=== PATIENT | female | born 1995 | race Two or more races ===

== ENCOUNTER 2024-10-26 17:49 | Emergency (ER) | payer MEDICAID, SELFPAY ==
[2024-10-26 18:12] VITALS: BP 106/70; PULSE 63; RESP 16; TEMP 37.1; O2SAT 99; BMI 26.4
--- NOTE | 2024-10-26 18:38 | XR_ITS ---
Examination: CT cervical spine without contrast 2-D sagittal reconstructions 2-D coronal reconstructions 3-D reconstructions. Exam date and time:October 26, 2024 1910 hours INDICATIONS: Patient fell today with image of the neck, neck pain CTDI:vol (mGy) 14.6 DLP: (mGycm) 345 Technique: Multiple 2 mm axial sections of the cervical spine have been obtained. The coronal and sagittal reconstructions have been obtained. 3-D reconstructions have been obtained. Low dose protocols were performed. One or more of the following dose reduction techniques were used; automated exposure control, adjustment of the mA and/or KV according to patient size, use of iterative reconstruction technique. Findings: Axial sections demonstrate intact base of the skull. C1 exhibit satisfactory relationship to the odontoid. No acute cervical vertebral body fracture seen. Alignment posterior spinous processes satisfactory. Impression: No acute cervical fracture.
--- NOTE | 2024-10-26 18:40 | EDNOTE_ITS ---
<Statement entered by Clair Canales MD - 10/27/24 04:49> As co-signing physician, I was present and available for consult prn. I concur with the plan and care as documented by the midlevel provider. ED Neck Injury Pain RME/HPI General Chief Complaint: Neck Pain/Injury Stated Complaint: Neck pain X 11 days Time Seen by Provider: 10/26/24 18:38 Arrival date/time: 10/26/24 17:49 29F with no significant PMH presents to ED with 2 days of R-sided neck pain. Patient denies fall/trauma, URI symptoms, fevers/chills, COSTA, dizziness, vision changes, and chiropractic manipulation. Limitations: no limitations Related Data Allergies Allergy/AdvReac Type Severity Reaction Status Date / Time No Known Drug Allergies Allergy Verified 10/26/24 17:55 Review of Systems Review of Systems Systems Reviewed: All systems reviewed, normal except as documented Constitutional Constitutional: Reports system reviewed and no additional complaints, except as documented, Denies fever(s) and Denies headache(s) ENT Ears, Nose, Mouth, and Throat: Denies disequilibrium, Denies headache(s) and Reports neck pain Cardiovascular Cardiovascular: Reports system reviewed and no additional complaints, except as documented, Denies chest pain and Denies dyspnea Respiratory Respiratory: Reports system reviewed and no additional complaints, except as documented, Denies cough and Denies dyspnea Gastrointestinal Gastrointestinal: Reports system reviewed and no additional complaints, except as documented, Denies abdominal pain, Denies nausea and Denies vomiting Musculoskeletal Musculoskeletal: Reports as per HPI and Reports neck pain Neurologic Neurologic: Reports system reviewed and no additional complaints, except as documented, Denies confusion, Denies disequilibrium and Denies headache(s) Psychiatric Psychiatric: Denies confusion Past Medical History Social History SMOKING STATUS: Never smoker ED Exam General Limitations: Present no limitations General appearance: Present alert and in no apparent distress Head Head exam: Present atraumatic Eye Eye exam: Present normal appearance, PERRL and EOMI ENT ENT exam: Present normal exam, normal oropharynx and mucous membranes moist Neck Neck exam: Present trachea midline Chest Chest inspection: Present normal inspection and symmetric chest wall rise Respiratory Respiratory exam: Present normal lung sounds bilaterally Cardiovascular Cardiovascular exam: Present regular rate, normal rhythm and normal heart sounds Abdominal Exam Abdominal exam: Present soft and normal bowel sounds Extremities Exam Extremities exam: Present normal inspection and full ROM Back Exam Back exam: Present normal inspection and full ROM Neurological Exam Neurological exam: Present alert, oriented X3 and CN II-XII intact Psychiatric Psychiatric exam: Present normal affect and normal mood Skin Skin exam: Present warm, dry, intact and normal color Course Quality Measures none Orders Category Date Time Status CT cervical spine wo con Stat Exams 10/26/24 18:38 Completed CYCLObenzaPRINE [Flexeril] Med 10/26/24 18:41 Discontinued 5 mg PO X1 ONE Naproxen [Naprosyn] Med 10/26/24 18:41 Discontinued 500 mg PO X1 ONE Vital Signs Vital signs: Vital Signs Temperature 98.8 F 10/26/24 18:12 Pulse Rate 63 10/26/24 18:12 Respiratory Rate 16 10/26/24 18:12 Blood Pressure 106/70 10/26/24 18:12 Pulse Oximetry (%) 99 10/26/24 18:12 Oxygen Delivery Method Room Air 10/26/24 18:12 O2 at 99% on RA and WNLs Neck Pain MDM Narrative MDM Narrative:: 29F with no significant PMH presents to ED with 2 days of R-sided neck pain. Patient denies fall/trauma, URI symptoms, fevers/chills, COSTA, dizziness, vision changes, and chiropractic manipulation. Physical exam reveals normal pupil response and EOM. Limited neck ROM, mostly to the R-side. Possible midline tenderness, but gait normal. Speech normal. WOB normal. Patient is afebrile, calm, and alert. CT unremarkable. Meds and genetic counselor given. Likely MSK in nature. Patient data External records reviewed:: [facility] previous records Clinical information provided by:: patient Social determinants that could affect healthcare access:: none Patient has the following chronic illnesses:: none How is presenting disease/condition affected by chronic disease/condition?: no chronic disease Evaluation data The following diagnostics were reviewed and interpreted by me:: radiology exam(s) Lab and/or radiology exams considered but not ordered:: ordered Interpretation Summary: above Medications / Prescriptions Medications or Prescriptions considered but not ordered:: ordered Medication administrations:: Medication Administration History Discontinued Medications Cyclobenzaprine HCl (Cyclobenzaprine 5 Mg Tablet) 5 mg PO X1 ONE Stop: 10/26/24 18:42 Last Admin: 10/26/24 18:55 Dose: 5 mg Documented By: Naproxen (Naproxen 250 Mg Tablet) 500 mg PO X1 ONE Stop: 10/26/24 18:42 Last Admin: 10/26/24 18:54 Dose: 500 mg Documented By: above Consultations Consultation(s) initiated? (list below): No Diagnosis Neck Differential Diagnosis: disc disorder of cervical region, whiplash injury to neck, closed subluxation of cervical spine, fracture of cervical spine without lesion of spinal cord, cervical radiculopathy, vertebral artery dissection, torticollis, cervical spondylosis, strain of neck muscle and other (neck pain) Most likely diagnosis given after review of the tests above:: neck pain Admission Indicated Admission indicated?: not indicated Admission Request Was there a request for admission?: No Disposition Plan Disposition Plan: Discharge Discharge Attestation Discharge Attestation: The patient and all family members were given an opportunity to ask questions and understood the discharge instructions. Discharge instructions specifically effects, indications for sooner follow up or return to the emergency department, and the expected course of current diagnosis. Patient condition: Stable Discharge Plan Plan Patient Disposition: HOME (Self Care) Discharge Disposition comment: Stable Prescriptions/Referrals Referrals: No Primary/Family,Physician [Primary Care Provider] - In 1 week Problem List Clinical Impression: Neck pain Patient/Caregiver Discharge Instructions Education Materials: ED Neck Pain No Trauma Additional Instructions: Please follow-up with PCP within 24-48 hours and return immediately if symptoms worsen. If problem persists, recommend outpatient PT and/or MRI follow-up. In the meantime, rest, use ice/heat, and/or compression. Print Language: Swedish Stand Alone Forms: Patient Portal Info Letter ARIANNE/WILL Supervising Physician ARIANNE/WILL Supervising Physician: Dr. Malik
[2024-10-26] MEDS: NAPROXEN 250 MG TABLET 500 MG PO (18:54)
== END 2024-10-26 20:44 | disposition home or self-care (01) ==
PROVIDERS: Emergency Provider Emergency Medicine
DX: M54.2 Cervicalgia (principal)
CPT/HCPCS: 72125; 99283; A9270

== ENCOUNTER 2024-11-20 00:28 | Emergency (ER) | payer MEDICAID, SELFPAY ==
[2024-11-20 00:33] VITALS: BMI 26.6
[2024-11-20 00:41] VITALS: BP 110/71; PULSE 63; RESP 18; TEMP 36.6; O2SAT 99
--- NOTE | 2024-11-20 00:45 | EKG_ITS ---
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
[2024-11-20 00:49] VITALS: BP 104/64; BP 107/71; BP 112/74; PULSE 60; PULSE 61; PULSE 64
--- NOTE | 2024-11-20 01:12 | PD.EDSYNC ---
ED Syncope RME/HPI General Chief Complaint: Syncope / Near Syncope Stated Complaint: 3 TEETH PULLED YESTERDAY SYNCO[PE Time Seen by Provider: 11/20/24 00:59 Arrival date/time: 11/20/24 00:28 29F with no significant PMH presents to ED with syncope after she stood up to use the bathroom. Patient had 3 teeth pulled yesterday w/o general anesthesia. Patient only has dizziness now. Limitations: no limitations Related Data Allergies Allergy/AdvReac Type Severity Reaction Status Date / Time No Known Drug Allergies Allergy Verified 11/20/24 00:42 Review of Systems Review of Systems Systems Reviewed: All systems reviewed, normal except as documented Constitutional Constitutional: Reports system reviewed and no additional complaints, except as documented, Denies fever(s) and Denies headache(s) ENT Ears, Nose, Mouth, and Throat: Reports as per HPI, Denies disequilibrium, Denies headache(s) and Reports vertigo Cardiovascular Cardiovascular: Reports system reviewed and no additional complaints, except as documented, Denies chest pain, Denies dyspnea and Reports syncope Respiratory Respiratory: Reports system reviewed and no additional complaints, except as documented, Denies cough and Denies dyspnea Gastrointestinal Gastrointestinal: Reports system reviewed and no additional complaints, except as documented, Denies abdominal pain, Denies nausea and Denies vomiting Neurologic Neurologic: Reports system reviewed and no additional complaints, except as documented, Reports as per HPI, Denies confusion, Denies disequilibrium, Denies headache(s), Reports syncope and Reports vertigo Psychiatric Psychiatric: Denies confusion Past Medical History Social History SMOKING STATUS: Never smoker ED Exam General Limitations: Present no limitations General appearance: Present alert and in no apparent distress Head Head exam: Present atraumatic Eye Eye exam: Present normal appearance, PERRL and EOMI ENT ENT exam: Present normal exam, normal oropharynx and mucous membranes moist Neck Neck exam: Present normal inspection, full ROM and trachea midline Chest Chest inspection: Present normal inspection and symmetric chest wall rise Respiratory Respiratory exam: Present normal lung sounds bilaterally Cardiovascular Cardiovascular exam: Present regular rate, normal rhythm and normal heart sounds Abdominal Exam Abdominal exam: Present soft and normal bowel sounds Extremities Exam Extremities exam: Present normal inspection and full ROM Back Exam Back exam: Present normal inspection and full ROM Neurological Exam Neurological exam: Present alert, oriented X3 and CN II-XII intact Psychiatric Psychiatric exam: Present normal affect and normal mood Skin Skin exam: Present warm, dry, intact and normal color Course Quality Measures none Orders Category Date Time Status Blood glucose [Bedside Blood Glucose] NOW Care 11/20/24 00:59 Active EKG (ED ONLY) *Do not use* NOW Care 11/20/24 00:45 Completed Orthostatic Vitals NOW Care 11/20/24 00:46 Active EKG (ED Only) Stat Exams 11/20/24 00:45 Draft Meclizine HCl [Antivert] Med 11/20/24 00:59 Discontinued 25 mg PO X1 ONE Vital Signs Vital signs: Vital Signs Temperature 98 F 11/20/24 00:41 Pulse Rate 63 11/20/24 00:41 Respiratory Rate 18 11/20/24 00:41 Blood Pressure 110/71 11/20/24 00:41 Pulse Oximetry (%) 99 11/20/24 00:41 Oxygen Delivery Method Room Air 11/20/24 00:41 O2 at 99% on RA and WNLs Syncope MDM Narrative MDM Narrative:: 29F with no significant PMH presents to ED with syncope after she stood up to use the bathroom. Patient had 3 teeth pulled yesterday w/o general anesthesia. Patient only has dizziness now. Physical exam reveals normal pupil response and EOM. CN II-XII grossly intact. Speech normal. Normal WOB. Patient is afebrile, calm, and alert. EKG is NSR. BS is 106. Likely vasovagal. Meds and securities counselor given. Patient data External records reviewed:: [facility] previous records Clinical information provided by:: patient Social determinants that could affect healthcare access:: none Patient has the following chronic illnesses:: none How is presenting disease/condition affected by chronic disease/condition?: no chronic disease Evaluation data The following diagnostics were reviewed and interpreted by me:: lab results and radiology exam(s) Lab and/or radiology exams considered but not ordered:: ordered Interpretation Summary: above Medications / Prescriptions Medications or Prescriptions considered but not ordered:: ordered Medication administrations:: Medication Administration History Discontinued Medications Meclizine HCl (Meclizine Hcl 25 Mg Tablet) 25 mg PO X1 ONE Stop: 11/20/24 01:00 above Consultations Consultation(s) initiated? (list below): No Diagnosis Syncope Differential Diagnosis: syncope due to orthostatic hypotension, vasovagal syncope, complete atrioventricular block, subarachnoid hemorrhage, pulmonary embolism and dehydration Most likely diagnosis given after review of the tests above:: vasovagal syncope Admission Indicated Admission indicated?: not indicated Admission Request Was there a request for admission?: No Disposition Plan Disposition Plan: Discharge Discharge Attestation Discharge Attestation: The patient and all family members were given an opportunity to ask questions and understood the discharge instructions. Discharge instructions specifically effects, indications for sooner follow up or return to the emergency department, and the expected course of current diagnosis. Patient condition: Stable Discharge Plan Plan Patient Disposition: HOME (Self Care) Discharge Disposition comment: Stable Problem List Clinical Impression: Vasovagal syncope Patient/Caregiver Discharge Instructions Education Materials: ED Fainting, Vagal Reaction Additional Instructions: Please follow-up with PCP within 24-48 hours and return immediately if symptoms worsen. Stay hydrated. Print Language: Indonesian Stand Alone Forms: Patient Portal Info Letter ARIANNE/WILL Supervising Physician ARIANNE/WILL Supervising Physician: Dr. Ye
[2024-11-20] MEDS: MECLIZINE HCL 25 MG TABLET PO (01:19)
== END 2024-11-20 02:50 | disposition home or self-care (01) ==
LOC: SERX 03:22
PROVIDERS: Emergency Provider Emergency Medicine
DX: R55 Syncope and collapse (principal); R42 Dizziness and giddiness
CPT/HCPCS: 93005; 99283; A9270